=== PATIENT | female | born 1995 | race Caucasian/White ===

== ENCOUNTER 2017-02-25 11:51 | Observation (INO) ==
--- NOTE | 2017-02-25 12:10 | Emergency Department Note ---
Disposition Clinical Impression: Acute appendicitis Qualifiers: Acute appendicitis type: with localized peritonitis Qualified Code(s): K35.3 - Acute appendicitis with localized peritonitis Disposition: Admitted As Inpatient Condition: Fair General Adult HPI - General Chief complaint: ED Abdominal Pain Stated complaint: Abd Pain Time Seen by Provider: 02/25/17 11:57 Source: patient Mode of arrival: ambulatory Limitations: no limitations Nursing Notes Reviewed: Yes Vital Signs Reviewed: Yes - History of Present Illness HPI Narrative: 21-year-old female who presents from a local urgent care due to right lower quadrant pain. She had gradual onset of right lower quadrant pain beginning this morning approximately 5 AM. She states that it has gotten worse. She has had 2 episodes of vomiting and some diarrhea. The diarrhea is not severe but she states it is just more liquid than normal and she has had a couple bowel movements like that today. She states that most of her pain is in her right lower quadrant but it is also mildly diffuse. She has not had a fever. She denies having any surgeries in the past. Aches no medications and has no medical history. Radiation: non-radiation Pain Severity: moderate Pain Scale: 6 Consistency: constant Improves with: nothing Worsens with: nothing Associated symptoms: Reports: denies other symptoms Treatments Prior to Arrival: none - Related Data Home Medications Medication Instructions Recorded Confirmed No Known Home Drugs 02/25/17 02/25/17 Allergies Allergy/AdvReac Type Severity Reaction Status Date / Time povidone-iodine Allergy Hives Verified 02/25/17 15:44 [From Betadine] shellfish derived Allergy Anaphylaxis Verified 02/25/17 15:44 soap [From Betadine] Allergy Hives Verified 02/25/17 15:44 All systems ED: reviewed and negative except as stated. Constitutional: Denies: fever ENT ED: Denies: throat pain Cardiovascular: Denies: chest pain Respiratory: Denies: cough, dyspnea Gastrointestinal: Reports: abdominal pain, nausea, vomiting, diarrhea Genitourinary: Denies: dysuria Musculoskeletal: Denies: back pain Integumentary: Denies: rash Neurological: Denies: headache Past Medical History - Past Medical History Medical history: Reports: no medical history Psychiatric history: Reports: no psych history SAP BW BI DEVELOPER history: Reports: no SAP BW BI DEVELOPER history - Social History Smoking Status: Never smoker Smokeless Tobacco Status: No Alcohol use: Reports: none Drug use: Reports: none Physical Exam - General Limitations: language barrier General appearance: alert, in no apparent distress - Head Head exam: atraumatic - Eye Eye exam: Present: normal appearance, PERRL - ENT ENT exam: normal exam - Neck Neck exam: Present: normal inspection - Chest Chest inspection: Present: normal inspection - Respiratory Respiratory exam: Present: normal lung sounds bilaterally. Absent: respiratory distress - Cardiovascular Cardiovascular exam: Present: regular rate, normal rhythm - Abdominal Exam Abdominal exam: Present: soft, tenderness (Right lower quadrant. She also does have diffuse mild tenderness. Bowel sounds are present). Absent: guarding, rebound - Extremities Exam Extremities exam: Present: normal inspection - Neurological Exam Neurological exam: Present: alert, oriented X3 - Psychiatric Psychiatric exam: Present: normal affect, normal mood - Skin Skin exam: Present: warm, dry Course Course Narrative: CT shows acute appendicitis. Will admit to Dr Aguillon. Vital Signs Temperature 98.0 F 02/25/17 11:54 Pulse Rate 101 02/25/17 11:54 Respiratory Rate 18 02/25/17 11:54 Blood Pressure 128/84 02/25/17 11:54 O2 Sat by Pulse Oximetry 96 02/25/17 11:54 Temperature 98.0 F 02/25/17 11:54 Pulse Rate 98 02/25/17 15:37 Respiratory Rate 20 02/25/17 15:37 Blood Pressure 136/79 02/25/17 15:37 O2 Sat by Pulse Oximetry 98 02/25/17 15:37 Oxygen Delivery Oxygen Delivery Room Air Medical Decision Making - MDM Narrative Medical decision making narrative: I examined this patient and my medical decision-making was reviewed with the Resident Physician. I agree with the documented findings, disposition and treatment plan as described except to the extent set forth below. Patient was seen and evaluated by myself and Dr. Ramirez, I agree with his evaluation and management plan, supervise the care of the patient's stay. Patient presents with abdominal pain that has been started about 5:00 AM with right lower quadrant. Nonsurgical abdomen had nausea vomiting diarrhea. Pain seems to be more diffuse. We are going to do lab work urinalysis, try to make her more comfortable, then she may need a CT. Abdomen/Pelvis CT 02/25/17 12:36 IMPRESSION: Findings compatible with early acute appendicitis. D/ / Erwin Harrison / Erwin Harrison Interpreting Provider: Erwin Harrison 1545 hrs. surgery, Dr. Aguillon has seen the patient in the ED and agreed to take to surgery. Family's agreement with the plan. - Lab Data Result diagrams: 02/25/17 12:28 02/25/17 12:28 Lab Results 02/25/17 02/25/17 02/25/17 Range/Units 12:28 12:28 12:28 WBC 15.4 H (4.3-11.1) K/mcL RBC 4.34 (3.82-4.97) M/mcL Hgb 13.2 (11.5-15.4) g/dL Hct 39.0 (35.3-44.9) % MCV 89.9 (83.0-100.0) fL MCH 30.4 (28.0-33.3) pg MCHC 33.8 (31.6-35.5) g/dL RDW 12.6 (11.5-14.5) % Plt Count 357 (140-400) K/mcL MPV 9.6 (9.4-12.4) fL Immature Gran % 0.3 (0-4) % Seg Neutrophils % 81.1 % Lymphocytes % 14.0 % Monocytes % 3.6 % Eosinophils % 0.7 % Basophils % 0.3 % Neutrophils # 12.5 H (1.6-8.9) K/mcL Lymphocytes # 2.2 (0.6-4.6) K/mcL Monocytes # 0.6 (0.0-1.3) K/mcL Eosinophils # 0.1 (0.0-0.6) K/mcL Basophils # 0.0 (0.0-0.2) K/mcL Immature Plt Fraction 3.2 (1.1-6.1) % Sodium 139 (136-145) mEq/L Potassium 3.8 (3.5-4.5) mEq/L Chloride 108 (98-109) mEq/L Carbon Dioxide 20 (19-29) mEq/L BUN 10 (7-20) mg/dL Creatinine 0.91 (0.57-1.11) mg/dL Est GFR ( Amer) > 60 (> 60) Est GFR (Non-Af Amer) > 60 (> 60) BUN/Creatinine Ratio 11 (6-26) Glucose 85 (70-99) mg/dL Calculated Osmolality 286 (280-300) Calcium 9.6 (8.6-10.8) mg/dL Total Bilirubin 0.7 (0.2-1.2) mg/dL Direct Bilirubin 0.2 (0.0-0.5) mg/dL Indirect Bilirubin 0.5 (0.0-1.2) mg/dL AST 21 (5-34) Units/L ALT 28 (0-55) Units/L Alkaline Phosphatase 77 (38-126) Units/L Serum Total Protein 7.7 (6.0-8.3) g/dL Albumin 4.2 (3.5-5.0) g/dL Globulin 3.5 (2.4-3.5) g/dL Albumin/Globulin Ratio 1.2 (1.1-2.2) Lipase 10 (8-78) Units/L Serum , Qual Negative (Negative) Urine Color (Yellow) Urine Clarity (Clear) Urine pH (5.0-8.0) pH Units Ur Specific [place] (1.010-1.025) Urine Protein (Neg-Trace) mg/dL Urine Glucose (UA) (Normal) mg/dL Urine Ketones (Negative) mg/dL Urine Blood (Negative) Urine Nitrite (Negative) Urine Bilirubin (Negative) Urine Urobilinogen (Normal) mg/dL Ur Leukocyte Esterase (Negative) Urine Microscopic RBC (0-3) per hpf Urine Microscopic WBC (0-3) per hpf Ur Squamous Epith Cells (None-Few) per lpf Urine Bacteria (None-Few) per hpf Hyaline Casts (None-Few) per lpf Urine Mucus (Few) Ur Culture Indicated? (NO) 02/25/17 Range/Units 12:50 WBC (4.3-11.1) K/mcL RBC (3.82-4.97) M/mcL Hgb (11.5-15.4) g/dL Hct (35.3-44.9) % MCV (83.0-100.0) fL MCH (28.0-33.3) pg MCHC (31.6-35.5) g/dL RDW (11.5-14.5) % Plt Count (140-400) K/mcL MPV (9.4-12.4) fL Immature Gran % (0-4) % Seg Neutrophils % % Lymphocytes % % Monocytes % % Eosinophils % % Basophils % % Neutrophils # (1.6-8.9) K/mcL Lymphocytes # (0.6-4.6) K/mcL Monocytes # (0.0-1.3) K/mcL Eosinophils # (0.0-0.6) K/mcL Basophils # (0.0-0.2) K/mcL Immature Plt Fraction (1.1-6.1) % Sodium (136-145) mEq/L Potassium (3.5-4.5) mEq/L Chloride (98-109) mEq/L Carbon Dioxide (19-29) mEq/L BUN (7-20) mg/dL Creatinine (0.57-1.11) mg/dL Est GFR ( Amer) (> 60) Est GFR (Non-Af Amer) (> 60) BUN/Creatinine Ratio (6-26) Glucose (70-99) mg/dL Calculated Osmolality (280-300) Calcium (8.6-10.8) mg/dL Total Bilirubin (0.2-1.2) mg/dL Direct Bilirubin (0.0-0.5) mg/dL Indirect Bilirubin (0.0-1.2) mg/dL AST (5-34) Units/L ALT (0-55) Units/L Alkaline Phosphatase (38-126) Units/L Serum Total Protein (6.0-8.3) g/dL Albumin (3.5-5.0) g/dL Globulin (2.4-3.5) g/dL Albumin/Globulin Ratio (1.1-2.2) Lipase (8-78) Units/L Serum , Qual (Negative) Urine Color Yellow (Yellow) Urine Clarity Cloudy A (Clear) Urine pH 6.5 (5.0-8.0) pH Units Ur Specific [place] > 1.030 H (1.010-1.025) Urine Protein Trace (Neg-Trace) mg/dL Urine Glucose (UA) Normal (Normal) mg/dL Urine Ketones Negative (Negative) mg/dL Urine Blood Negative (Negative) Urine Nitrite Negative (Negative) Urine Bilirubin Negative (Negative) Urine Urobilinogen Normal (Normal) mg/dL Ur Leukocyte Esterase Negative (Negative) Urine Microscopic RBC 0-3 (0-3) per hpf Urine Microscopic WBC 0-3 (0-3) per hpf Ur Squamous Epith Cells Many H (None-Few) per lpf Urine Bacteria Few (None-Few) per hpf Hyaline Casts Few (None-Few) per lpf Urine Mucus Few (Few) Ur Culture Indicated? NO (NO)
[2017-02-25] MEDS ORDERED: 0.9 % Sodium Chloride 1,000 ML IVC ONE (12:12)
[2017-02-25] MEDS ORDERED: *HR* Morphine 2 MG/ML SYRINGE IVP ONE ×2 (12:29→15:48)
[2017-02-25] MEDS ORDERED: Ondansetron 4 MG/2 ML VIAL IVP ONE ×3 (12:29→18:11)
[2017-02-25 12:34] LABS: Basophils % 0.3 %; Eosinophils # 0.1 K/mcL (0.0-0.6); Eosinophils % 0.7 %; Hemoglobin 13.2 g/dL (11.5-15.4); Immature Granulocytes % 0.3 % (0-4); Immature Platelets 3.2 % (1.1-6.1); Lymphocytes # 2.2 K/mcL (0.6-4.6); Mean Corpuscular HGB Conc 33.8 g/dL (31.6-35.5); Mean Corpuscular Hemoglobin 30.4 pg (28.0-33.3); Mean Corpuscular Volume 89.9 fL (83.0-100.0); Mean Platelet Volume 9.6 fL (9.4-12.4); Monocytes # 0.6 K/mcL (0.0-1.3); Monocytes % 3.6 %; Neutrophils # 12.5 K/mcL (1.6-8.9); Platelet Count 357 K/mcL (140-400); Red Blood Count 4.34 M/mcL (3.82-4.97); Red Cell Distribution Width 12.6 % (11.5-14.5); Segmented Neutrophils % 81.1 %
[2017-02-25 12:50] LABS: Alanine Aminotransferase 28 Units/L (0-55); Albumin 4.2 g/dL (3.5-5.0); Albumin/Globulin Ratio 1.2 (1.1-2.2); Alkaline Phosphatase 77 Units/L (38-126); Aspartate Amino Transferase 21 Units/L (5-34); BUN/Creatinine Ratio 11 (6-26); Bilirubin,Direct 0.2 mg/dL (0.0-0.5); Bilirubin,Indirect 0.5 mg/dL (0.0-1.2); Bilirubin,Total 0.7 mg/dL (0.2-1.2); Blood Urea Nitrogen 10 mg/dL (7-20); Calcium 9.6 mg/dL (8.6-10.8); Carbon Dioxide 20 mEq/L (19-29); Chloride 108 mEq/L (98-109); Globulin 3.5 g/dL (2.4-3.5); Glucose 85 mg/dL (70-99); Lipase 10 Units/L (8-78); Osmolality,Calculated 286 (280-300); Potassium 3.8 mEq/L (3.5-4.5); Sodium 139 mEq/L (136-145); Total Protein 7.7 g/dL (6.0-8.3); eGFR For African Americans > 60 (> 60); eGFR For Non-African Americans > 60 (> 60)
[2017-02-25 13:15] LABS: Hyaline Casts,Urine Few per lpf (None-Few); Mucus,Urine Few (Few); RBC,Urine 0-3 per hpf (0-3); Squamous Epithelial Cell,Urine Many per lpf (None-Few); WBC,Urine 0-3 per hpf (0-3)
[2017-02-25 13:16] LABS: Bacteria,Urine Few per hpf (None-Few)
[2017-02-25 13:19] LABS: Clarity,Urine Cloudy (Clear); Color,Urine Yellow (Yellow)
[2017-02-25 13:20] LABS: Bilirubin,Urine Negative (Negative); Blood,Urine Negative (Negative); Glucose,Urine (UA) Normal (Normal); Ketones,Urine Negative (Negative); Leukocyte Esterase,Urine Negative (Negative); Nitrite,Urine Negative (Negative); PH,Urine 6.5 pH Units (5.0-8.0); Protein,Urine Trace mg/dL (Neg-Trace); Specific Gravity,Urine > 1.030 (1.010-1.025); Urobilinogen,Urine Normal (Normal)
--- NOTE | 2017-02-25 16:05 | General Surg History&Physical ---
Date of Encounter: 02/25/17 Time of Encounter: 15:30 History of Present Illness Chief complaint: acute right lower quadrant abd pain, acute appendicitis HPI: Ms. Rothman is a 21 year old, presents to [facility] ED after presenting to [facility] with acute onset right lower quadrant abd pain with nausea and vomiting. Symptoms started approximately 2300 hrs. last night and have progressed in severity prompting the patient and her family to seek medical attention. The findings were concerning for acute appendicitis for which the patient was referred for to the emergency department. CT abdomen/pelvis confirmed the clinical suspicion showing a 1.5 cm dilated appendix with an appendicolith. White count was elevated at 15.4 with 12.5% neutrophils. The CT was personally reviewed with [facility] Past medical history: None Surgeries: None Allergies: No known drug allergies Medications: control Social history: Patient is a student at [employer], for the . The patient has never been ; she does not smoke, she denies any alcohol or illicit drug use. History: Noncontributory Physical examination: Age-appropriate female who is somewhat emotionally labile but admittedly she is in moderate distress related to her right lower quadrant abdominal pain. She is 1.63 m tall, 63.5 kg with a BMI of 24.0 the patient is afebrile at 98, heart rate 98-101, respirations 18-20, blood pressure 136/79. SPO2 on room air 98% Skin is warm, moist without obvious jaundice Lungs: Clear to auscultation; no obvious pain with deep inspiration Cardiac: Rate was borderline rapid (approximately 100) without discernible murmurs Abdomen: Soft with minimal tenderness in the left lower quadrant referred to the right lower quadrant; tenderness more pronounced in the right lower quadrant. No discernible intra-abdominal masses. No obvious rebound. Hypoactive bowel sounds Extremities: No obvious clubbing, cyanosis, or edema. CT as noted above Laboratories: White count 15.4, hemoglobin 13.2, hematocrit 39.0; platelet count 357,000 Electrolytes, BUN, creatinine within normal limits; LFTs also within normal limits Serum negative Urinalysis notable for specific gravity is 1.030, pH 6.5, no significant ketones or cell counts Impression: 21-year-old female with new onset right lower quadrant abdominal pain, nausea and vomiting. Clinical and radiologic findings consistent with acute appendicitis for which surgery has been recommended. Patient is a reasonable candidate for laparoscopic appendectomy but understands an open appendectomy may become necessary. Risks of surgery include hemorrhage, infection, intra-abdominal abscess, injury to adjacent structures. If a normal appendix is encountered, it will be removed to eliminate this as a clinical diagnosis in the future. The patient and her family expressed understanding and willingness to proceed with surgery as recommended. Surgical consent has been obtained. Past Med Surg Social Fam HX - Past Medical History Medical history: no medical history Psychiatric history: no psych history - Social History Smoking Status: Never smoker Smokeless Tobacco Status: No Alcohol use: none Drug use: none Medications and Allergies No Known Home Drugs 02/25/17 [History] 3 Allergy/AdvReac Type Severity Reaction Status Date / Time povidone-iodine Allergy Hives Verified 02/25/17 15:44 [From Betadine] shellfish derived Allergy Anaphylaxis Verified 02/25/17 15:44 soap [From Betadine] Allergy Hives Verified 02/25/17 15:44 Review of Systems All systems PM: A 10-system review of systems was performed and is negative for pertinent findings except as documented above in the HPI. General Surgery Exam Initial Vital Signs Temp Pulse Resp BP Pulse Ox 98.0 F 101 18 128/84 96 02/25/17 11:54 02/25/17 11:54 02/25/17 11:54 02/25/17 11:54 02/25/17 11:54 Results - Labs 02/25/17 12:28 02/25/17 12:28 Abnormal lab results WBC 15.4 K/mcL (4.3-11.1) H 02/25/17 12:28 Neutrophils # 12.5 K/mcL (1.6-8.9) H 02/25/17 12:28 Urine Clarity Cloudy (Clear) A 02/25/17 12:50 Ur Specific [place] > 1.030 (1.010-1.025) H 02/25/17 12:50 Ur Squamous Epith Cells Many per lpf (None-Few) H 02/25/17 12:50 Diabetes panel 02/25/17 Range/Units 12:28 Sodium 139 (136-145) mEq/L Potassium 3.8 (3.5-4.5) mEq/L Chloride 108 (98-109) mEq/L Carbon Dioxide 20 (19-29) mEq/L BUN 10 (7-20) mg/dL Creatinine 0.91 (0.57-1.11) mg/dL Glucose 85 (70-99) mg/dL Calcium 9.6 (8.6-10.8) mg/dL AST 21 (5-34) Units/L ALT 28 (0-55) Units/L Alkaline Phosphatase 77 (38-126) Units/L Albumin 4.2 (3.5-5.0) g/dL Calcium panel 02/25/17 Range/Units 12:28 Calcium 9.6 (8.6-10.8) mg/dL Albumin 4.2 (3.5-5.0) g/dL Pituitary panel 02/25/17 Range/Units 12:28 Sodium 139 (136-145) mEq/L Potassium 3.8 (3.5-4.5) mEq/L Chloride 108 (98-109) mEq/L Carbon Dioxide 20 (19-29) mEq/L BUN 10 (7-20) mg/dL Creatinine 0.91 (0.57-1.11) mg/dL Glucose 85 (70-99) mg/dL Calcium 9.6 (8.6-10.8) mg/dL Adrenal panel 02/25/17 Range/Units 12:28 Sodium 139 (136-145) mEq/L Potassium 3.8 (3.5-4.5) mEq/L Chloride 108 (98-109) mEq/L Carbon Dioxide 20 (19-29) mEq/L BUN 10 (7-20) mg/dL Creatinine 0.91 (0.57-1.11) mg/dL Glucose 85 (70-99) mg/dL Calcium 9.6 (8.6-10.8) mg/dL Total Bilirubin 0.7 (0.2-1.2) mg/dL AST 21 (5-34) Units/L ALT 28 (0-55) Units/L Alkaline Phosphatase 77 (38-126) Units/L Albumin 4.2 (3.5-5.0) g/dL All other labs normal.
--- NOTE | 2017-02-25 16:57 | Anesthesia Evaluation PreOp ---
Date of Encounter: 02/25/17 Time of Encounter: 16:55 - Past History Planned Operation: Lap. APPY Cardiac History: Denies any Significant Hx Pulmonary History: Denies Any Significant HX BRICK OFF BEARER History: Denies Any Significant HX Other Medical History: Denies Any Significant HX Anesthesia History: Past Anesthesia (none) Alcohol Use: none Drug use: none Medications and Allergies No Known Home Drugs 02/25/17 [History] 3 Allergy/AdvReac Type Severity Reaction Status Date / Time povidone-iodine Allergy Hives Verified 02/25/17 15:44 [From Betadine] shellfish derived Allergy Anaphylaxis Verified 02/25/17 15:44 soap [From Betadine] Allergy Hives Verified 02/25/17 15:44 - Meds/Allergy Pre-op Review Medications Reviewed: Yes Allergies Reviewed: Yes Beta Blockers on Current Med List: No Anesthesia Results - Labs 02/25/17 12:28 02/25/17 12:28 C Laboratory Tests 02/25/17 02/25/17 02/25/17 12:28 12:28 12:28 Serum , Qual Negative Anesthesia Exam O2 Sat Height 1.63 m Weight 63.503 kg O2 Sat by Pulse Oximetry 98 O2 Sat by Pulse Oximetry 96 Vital Signs Temp Pulse Resp BP Pulse Ox 98.0 F 101 18 128/84 96 02/25/17 11:54 02/25/17 11:54 02/25/17 11:54 02/25/17 11:54 02/25/17 11:54 Vital Signs/O2 Sat, Most Current Temp Pulse Resp BP Pulse Ox 98.0 F 98 20 136/79 98 02/25/17 11:54 02/25/17 15:37 02/25/17 15:37 02/25/17 15:37 02/25/17 15:37 Height: 5'4'' Weight: 140# NPO (# of Hours): > 8hrs Pain Scale: 0 Pain Scale Used: Numeric (1 - 10) - HEENT Pupil (Motor): Pupils equal, EOMI Mallampati: I Teeth: Normal Oral Opening: Greater than 3 - BRICK OFF BEARER LOC: Oriented BRICK OFF BEARER Motor: Normal RUE, Normal LUE, Normal RLE, Normal LLE, Normal Face BRICK OFF BEARER Sensory: Normal: RUE, LUE, RLE, LLE, Face - Cardiac Rhythm: Regular Murmur: None JVD: No Carotid Bruit: No - Pulmonary Breath Sounds: bilateral Clear Respiratory Effort: Symmetrical Anesthesia Assess/Plan ASA Score: 1 Modified Rose Scale for Level of Consciousness: Cooperative, oriented, and tranquil Anesthetic Plan: General Autologous Blood: Yes Monitoring Plan: Standard Monitors Recovery Plan: PACU
[2017-02-25] MEDS ORDERED: *HR* FentaNYL (PF) 100 MCG/2 ML VIAL ONE (17:18)
[2017-02-25] MEDS ORDERED: *HR* Propofol 200 MG/20 ML VIAL IVP ONE (17:18)
[2017-02-25] MEDS ORDERED: Ondansetron 4 MG/2 ML VIAL ONE ×2 (17:25→17:57)
[2017-02-25] MEDS ORDERED: Dexamethasone 4 MG/ML VIAL ONE ×2 (17:25→17:57)
[2017-02-25] MEDS ORDERED: *HR* Succinylcholine 200 MG/10 ML VIAL IVP ONE (17:25)
[2017-02-25] MEDS ORDERED: Lidocaine -MPF 2% 2 ML VIAL ONE ×2 (17:25→17:57)
[2017-02-25] MEDS ORDERED: *HR* Rocuronium Bromide 50 MG/5 ML VIAL ONE ×2 (17:25→17:57)
[2017-02-25] MEDS ORDERED: Lidocaine -MPF 4% 5 ML AMPUL ONE ×2 (17:25→17:57)
[2017-02-25] MEDS ORDERED: Bupivacaine/EPI 1:200k 0.25%PF 30 ML VIAL ONE (17:35)
[2017-02-25] MEDS ORDERED: CefOXitin 2,000 MG VIAL ONE (17:57)
[2017-02-25] MEDS ORDERED: *HR* Midazolam HCl 2 MG/2 ML VIAL ONE (17:58)
[2017-02-25] MEDS ORDERED: *HR* Promethazine 25 MG/ML VIAL IVP PRN (18:11)
[2017-02-25] MEDS ORDERED: Neostigmine Methylsulfate 3 MG/3 ML SYRINGE ONE (18:17)
--- NOTE | 2017-02-25 18:56 | Operative Note ---
Date of procedure: 02/25/17 Pre-op diagnosis: acute appendicitis Post-op diagnosis: same Procedure: laparoscopic appendectomy Complications: none apparent Anesthesia: GETA Local Anesthetics: 0.25% Sensorcaine HCL with Epinephrine 1:200,000 SubQ (cc) ( 30 mL) Surgeon: Rikki Aguillon Estimated blood loss (cc): 5 IV fluids (cc): 1,200 Specimen: appendix Disposition: PACU Procedure in Detail: The patient was brought to the operating room and placed supine upon the operating table. The patient was appropriately identified as to person and procedure. The accuracy of this information was confirmed by the procedure team. The patient was then intubated and anesthetized under the supervision of Dr. Gonzalo Jang. The abdomen was prepped and draped in the usual sterile fashion.. Several milliliters of 0.25% bupivicaine with 1-200,000 units epinephrine was infiltrated into the infra umbilical skin. A small transverse incision was made. Dissection was carried to the fascia. The fascia was grasped and elevated. Additional bupivacaine with epinephrine was infiltrated before the fascia was incised. An 11 mm Xcel port was established. The rigid laparoscope was placed within the obturator to visualize passage through the layers of the anterior abdominal wall. Once the abdominal cavity was accessed, the obturator was replaced by the rigid laparoscope. The abdomen was insufflated with gaseous carbon dioxide. There was no obvious visible injury from establishing the port. Under direct visualization a 5 mm port was placed in the midline suprapubic abdomen, and a 12 mm port placed in the left lower quadrant midclavicular line. Both sites were infiltrated with bupivacaine with epinephrine solution. Using endoscopic [place], the cecum was identified and elevated. A markedly enlarged, acutely inflamed appendix was identified. The mesoappendix was divided at the junction between the appendix and the cecum. The appendix was divided at this junction using an Ethicon ATS 45 mm stapler, using a blue cartridge. The mesoappendix was then divided with a second application of the Ethicon ATS 45 mm stapler using a vascular cartridge (white) . The appendix was from the surrounding structures and placed in an endoscopic pouch. The appendix was extracted through the infraumbilical opening and sent to pathology for evaluation. The staple lines were inspected and found to be intact. The pneumoperitoneum was then evacuated and the instrumentation removed. The fascia of the infra umbilical opening was closed with interrupted [id number] of 0 Vicryl using S retractors. The skin edges of the port sites were approximated with running subcuticular 4-0 Vicryl. The incisions were sealed with Dermabond dermal adhesive. The patient was taken to recovery in stable condition. Needle, sponge, and instrument counts were correct at the close of the case. Total volume of 0.25% bupivacaine with 1 -200,000 units epinephrine used during this procedure, 30 mL.
[2017-02-25] MEDS: *HR* HYDROmorphone (PF) 1 MG/ML SYRINGE IVP PRN ×3 (19:00→21:46)
--- NOTE | 2017-02-25 19:50 | Anesthesia Evaluation Post Op ---
Date of Encounter: 02/25/17 Time of Encounter: 19:49 - Vital Signs Vital Signs: Last Vital Signs Temp 101 F H 02/25/17 19:23 Pulse 109 02/25/17 19:34 Resp 16 02/25/17 19:34 BP 133/65 02/25/17 19:34 Pulse Ox 94 02/25/17 19:34 - Lungs Lungs: Clear Ascult./Percussion - Airway Airway: Non-obstructed - Cardiovascular Regular Rate - Mental Status Mental Status: Alert & Oriented, Answers Appropriately - Pain Pain Scale: 3 - Nausea Vomiting Nausea Vomiting: Not Present - Hydration Hydration: NPO - Discharge PostOp Status: Transfer Patient to floor
[2017-02-25] MEDS ORDERED: Dexmedetomidine HCl 200 MCG/50 ML MLS IVC ONE (19:55)
[2017-02-25] MEDS ORDERED: Acetaminophen 325 MG TABLET PO PRN (21:30)
[2017-02-25] MEDS ORDERED: Ringers Solution, Lactated 500 ML IVC ONE (21:30)
[2017-02-25] MEDS: Ringers Solution, Lactated 1,000 ML IVC SCH (23:33)
[2017-02-25] MEDS: Ondansetron 4 MG/2 ML VIAL IVP SCH (23:33)
[2017-02-25] MEDS: *HR* OxyCODONE/APAP 5/325 TABLET PO PRN (23:33)
[2017-02-26] MEDS: Ondansetron 4 MG/2 ML VIAL IVP SCH ×3 (01:30→08:33)
[2017-02-26 05:50] LABS: Basophils % 0.1 %; Hematocrit 36.4 % (35.3-44.9); Hemoglobin 12.3 g/dL (11.5-15.4); Immature Granulocytes % 0.4 % (0-4); Lymphocytes # 1.8 K/mcL (0.6-4.6); Lymphocytes % 11.2 %; Mean Corpuscular HGB Conc 33.8 g/dL (31.6-35.5); Mean Corpuscular Hemoglobin 30.4 pg (28.0-33.3); Mean Corpuscular Volume 89.9 fL (83.0-100.0); Mean Platelet Volume 9.8 fL (9.4-12.4); Monocytes # 0.6 K/mcL (0.0-1.3); Monocytes % 3.5 %; Neutrophils # 13.3 K/mcL (1.6-8.9); Platelet Count 315 K/mcL (140-400); Red Blood Count 4.05 M/mcL (3.82-4.97); Red Cell Distribution Width 12.5 % (11.5-14.5); Segmented Neutrophils % 84.8 %
[2017-02-26] MEDS: *HR* HYDROmorphone (PF) 1 MG/ML SYRINGE IVP PRN (06:22)
[2017-02-26 08:31] VITALS: BP 100/60
[2017-02-26] MEDS: *HR* OxyCODONE/APAP 5/325 TABLET PO PRN (08:32)
[2017-02-26] MEDS: Ringers Solution, Lactated 1,000 ML IVC SCH (08:33)
--- NOTE | 2017-02-26 10:41 | General Surgery Progress Note ---
Date of Encounter: 02/26/17 Time of Encounter: 10:36 Subjective Patient reports: feels better Narrative: General Surgery - POD #1 patient feeling better; abdominal pain much improved, no N/V. Tolerating diet The patient is afebrile, currently 98.3, pulse 65, respirations 16, blood pressure 100/60. Lungs: Clear, no abdominal pain with deep inspiration Cardiac: Regular rate, no appreciable murmurs Abdomen: Soft with minimal infraumbilical tenderness as expected following laparoscopic surgery. Port sites clean and dry. Active bowel sounds White count 15.7, hemoglobin 12.3 with hematocrit 36.4; neutrophils remain elevated at 13.3%. Persistent leukocytosis and neutrophilia is likely reaction of surgery. Impression: Acute appendicitis, postoperative day 1 status post laparoscopic appendectomy Acceptable postoperative status Plan: Discharge home Follow up in my office, 03/04/17. Patient to call office Tuesday to make this appointment. Instructions: Patient may be as active as tolerated; limited to less than 20 pounds Patient may shower, wash incisions with soap and water Regular diet Tylenol, ibuprofen, Motrin, Advil, etc. as needed for pain Prescription for Percocet 5/325, #10, one every 6 hours as needed for pain not relieved by [id number] medications Objective Vital Signs - Last 8 Hours Temp Pulse Resp BP Pulse Ox 02/26/17 08:00 98.3 F 65 16 100/60 94 02/26/17 04:06 98.5 F 79 16 101/51 93 Intake and Output 02/25/17 02/26/17 02/26/17 23:59 07:59 15:59 Intake Total 500 / 500 1000 / 1000 Output Total 5 / 5 0 / 0 Balance 495 / 495 1000 / 1000 Intake: IV Fluids 500 / 500 1000 / 1000 Lactated Ringers 1,000 ML @ 60 1000 / 1000 mls/hr IVC .[id number] BERNIE Rx#: [id number] Lactated Ringers 500 ML @ 1000 500 / 500 mls/hr IVC .Q30M ONE Rx#: [id number] Oral 0 / 0 Output: Urine 0 / 0 Estimated Blood Loss 5 / 5 Other: Weight 63 kg Patient Weight 02/26/17 23:59 Weight 63 kg - Labs 02/26/17 05:39 02/25/17 12:28 - VTE Documentation of Mechanical Device: Intermittent pneumatic compression device Consult Discharge Plan - Plan Referrals: NONE,PCP [Primary Care Provider] -
--- NOTE | 2017-02-26 10:44 | Discharge Summary ---
Outpatient Proc Discharge Plan - Plan Additional Instructions: Regular diet Activity as tolerated, lifting limited to less than 20 pounds Patient may shower, wash incision with soap and water Follow-up my office, Tuesday, . Patient to call office on Tuesday morning to make this appointment Tylenol, ibuprofen, Motrin, Advil, Aleve, etc. as needed for pain Prescription for Percocet 5/325, #10, one every 6 hours as needed for pain not relieved by [id number] medications Prescriptions: OxyCODONE/APAP 5/325 [Percocet 5/325 MG] 1 each PO Q6HR PRN #10 tablet PRN Reason: Pain Home Medications: Acetaminophen [Tylenol] 650 mg PO Q6HR PRN tablet 02/26/17 [Rx] OxyCODONE/APAP 5/325 [Percocet 5/325 MG] 1 each PO Q6HR PRN #10 tablet 02/26/17 [Rx]
== END 2017-02-26 11:25 | disposition home or self-care (01) ==
LOC: EMEROO 11:51 → 3ANU 11:51
PROVIDERS: ADMIT Surgery; ATTEND Surgery